=== PATIENT | male | born 1965 | race African-American/Black ===

== ENCOUNTER 2018-11-21 16:03 | Emergency (ER) | payer MEDICARE, MEDICAID ==
[~2018-11-21] VITALS: Ht 180.3 cm; Wt 115.0 kg
[~2018-11-21 16:03] MED LIST: HYDR25TA PO; INSLIS SUBCUT; LISI10TA5 PO; NIFE60TA18 PO; SIMV5TAB53 MT
[2018-11-21] MEDS ORDERED: LIDOCAINE HCL/PF 1% 10 MG/ML 5ML VIAL IJ ONE (17:30)
[2018-11-21] MEDS ORDERED: BACITRACIN ZINC OINT UDPKT TOP ONE (17:30)
[2018-11-21 18:00] VITALS: BP 95/68
== END 2018-11-21 18:10 | disposition home or self-care (01) ==
LOC: ER 16:03
DX: L02.214 Cutaneous abscess of groin (principal); E11.9 Type 2 diabetes mellitus without complications
CPT/HCPCS: 10060; 82962; 99283; J3490

== ENCOUNTER 2018-11-23 15:07 | Emergency (ER) | payer MEDICARE, MEDICAID ==
[~2018-11-23] VITALS: Ht 180.3 cm; Wt 104.5 kg
[2018-11-23] MEDS ORDERED: BACITRACIN ZINC OINT UDPKT TOP ONE (16:45)
[2018-11-23] MEDS ORDERED: LIDOCAINE 1%/EPI 1:100,000 10 ML VIAL IJ ONE (16:45)
[2018-11-23] MEDS ORDERED: LIDOCAINE HCL/EPINEPHRINE 1%-EPI 1:100,000 20 ML VIAL INFIL NR (16:55)
[2018-11-23 17:35] VITALS: BP 139/75
== END 2018-11-23 17:58 | disposition home or self-care (01) ==
LOC: ER 15:31
DX: Z48.00 Encounter for change or removal of nonsurgical wound dressing (principal); L02.214 Cutaneous abscess of groin
CPT/HCPCS: 10060; 99283; J3490

== ENCOUNTER 2018-11-26 14:40 | Emergency (ER) | payer MEDICARE, MEDICAID ==
[~2018-11-26] VITALS: Ht 180.3 cm; Wt 88.0 kg
[~2018-11-26 14:40] MED LIST changes: -SIMV5TAB53 MT; +SIMV5TAB58 MT
[2018-11-26 17:45] VITALS: BP 154/83
== END 2018-11-26 17:46 | disposition home or self-care (01) ==
LOC: ER 14:40
DX: L02.214 Cutaneous abscess of groin (principal); E11.9 Type 2 diabetes mellitus without complications; E78.00 Pure hypercholesterolemia, unspecified; I10 Essential (primary) hypertension; Z79.899 Other long term (current) drug therapy; Z79.4 Long term (current) use of insulin
CPT/HCPCS: 99281

== ENCOUNTER 2019-12-30 20:49 | Emergency (ER) | payer MEDICARE, MEDICAID ==
[~2019-12-30] VITALS: Ht 180.3 cm; Wt 81.6 kg
[2019-12-30 23:13] VITALS: BP 127/74
== END 2019-12-30 23:14 | disposition home or self-care (01) ==
LOC: ER 20:49
DX: R05 Cough (principal); Z20.828 Contact with and (suspected) exposure to other viral communicable diseases; R43.0 Anosmia; E11.9 Type 2 diabetes mellitus without complications; I10 Essential (primary) hypertension; Z79.899 Other long term (current) drug therapy
CPT/HCPCS: 99283; C9803; U0003; 99282

== ENCOUNTER 2020-01-16 20:38 | Inpatient (IN) | payer MEDICARE, MEDICAID ==
[~2020-01-16] VITALS: Ht 180.3 cm; Wt 82.6 kg
[2020-01-16] MEDS ORDERED: SODIUM CHLORIDE 0.9% 1,000 ML IV ONE ×2 (21:44→23:30)
[2020-01-16] MEDS ORDERED: ONDANSETRON HCL 4MG/2ML INJ IV STA (21:44)
[2020-01-16 22:51] LABS: BASOPHILS % 1.1 % (0.0-2.0); EOSINOPHILS % 1.3 % (0.0-5.0); HEMATOCRIT. 35.1 % (42.0-52.0); HEMOGLOBIN. 11.6 g/dL (14.0-18.0); LYMPHOCYTES % 19.7 % (20.0-50.0); MEAN CORPUSCULAR HEMOGLOBIN 28.2 pg (28.0-32.0); MEAN CORPUSCULAR VOLUME 85.2 fL (80.0-94.0); MEAN PLATELET VOLUME 10.6 fl (7.4-10.4); MONOCYTES % 7.1 % (2.0-8.0); NEUTROPHILS % 70.8 % (40.0-76.0); PLATELET 212 x1000/uL (130-400); RED BLOOD CELL COUNT 4.12 mill/uL (4.7-6.1); RED CELL DISTRIBUTION WIDTH 13.4 % (11.6-14.6)
[2020-01-16 22:57] LABS: CHLORIDE 93 mEq/L (98-107)
[2020-01-16 23:04] LABS: BETA HYDROXYBUTYRATE 1.5 mMol/L (0.0-0.3)
[2020-01-16] MEDS ORDERED: INSULIN REGULAR (HUMULIN R) 300UNITS/3ML SUBCUT ONE (23:30)
[2020-01-17] MEDS ORDERED: ONDANSETRON HCL 4MG/2ML INJ IV PRN (00:15)
[2020-01-17] MEDS ORDERED: DOCUSATE SODIUM 100MG CAPSULE PO PRN (00:15)
[2020-01-17] MEDS ORDERED: HYDRALAZINE 20MG/ML VIAL IV PRN (00:15)
[2020-01-17] MEDS ORDERED: HYDROCODONE/ACETAMINOPHEN 10/325MG TABLET PO PRN (00:15)
[2020-01-17] MEDS ORDERED: ACETAMINOPHEN 325MG TABLET PO PRN (00:15)
[2020-01-17] MEDS ORDERED: DIPHENHYDRAMINE 50MG/ML VIAL IV PRN (00:15)
[2020-01-17] MEDS ORDERED: MAGNESIUM/ALUMINUM HYDROXIDE/SIMETHICONE 30ML UDC PO PRN (00:15)
[2020-01-17] MEDS ORDERED: CLONIDINE 0.1MG TABLET PO PRN (00:15)
[2020-01-17] MEDS ORDERED: LORAZEPAM 2MG/ML CPJ IV PRN (00:15)
[2020-01-17] MEDS ORDERED: GUAIFENESIN 200MG/10ML SUGAR FREE UDC PO PRN (00:15)
[2020-01-17] MEDS ORDERED: MORPHINE SULFATE 2 MG/ML CPJ (NOT FOR IM USE) IV PRN (00:15)
[2020-01-17] MEDS ORDERED: DEXTROSE 50% WATER 50ML SYRINGE IV PRN (00:15)
[2020-01-17] MEDS ORDERED: IPRATROPIUM/ALBUTEROL 0.5-3(2.5)MG/3ML NEB NEB PRN (00:15)
[2020-01-17 00:55] LABS: BG CARBOXYHEMOGLOBIN 0.3 % (0.5-1.5); BG DEOXYHEMOGLOBIN 4.6 % (0.0-5.0); BG FRACTION INSPIRED OXYGEN 21; BG HCO3 ACT 16.1 mmol/L (22.0-26.0); BG METHEMOGLOBIN 0.3 % (0.0-1.5); BG OXYGEN SATURATION 95.4 % (92.0-98.5); BG OXYHEMOGLOBIN 94.8 % (94.0-97.0); BG PCO2 31.9 mmHg (35.0-45.0); BG PO2 82.1 mmHg (75.0-100.0); BG SAMPLE SITE RIGHT RADIAL; BG TOTAL HEMOGLOBIN 10.6 g/dL (12.0-18.0); BG VENT MODE ROOM AIR
[2020-01-17] MEDS ORDERED: SODIUM CHLORIDE 0.9% 1,000 ML IV ONE (01:00)
[2020-01-17] MEDS ORDERED: POTASSIUM CHLORIDE 20MEQ TABLET SR PO ONE (02:00)
[2020-01-17] MEDS ORDERED: SODIUM CHLORIDE 0.9% 2,000 ML IV ONE (02:00)
[2020-01-17 02:10] LABS: CLARITY URINE CLEAR (CLEAR); COLOR URINE YELLOW (YELLOW); KETONES URINE NEGATIVE (NEGATIVE); LEUKOCYTE ESTERASE URINE NEGATIVE (NEGATIVE); NITRITE URINE NEGATIVE (NEGATIVE); OCCULT BLOOD URINE 1+ (NEGATIVE); PH URINE 5.5 (4.5-8.0); PROTEIN URINE 3+ (NEGATIVE); SPECIFIC GRAVITY URINE 1.023 (1.005-1.030); UROBILINOGEN URINE 0.2 E.U./dL (0.2-1.0)
[2020-01-17] MEDS: SODIUM CHLORIDE 0.45% 1,000 ML IV SCH ×3 (02:24→21:42)
[2020-01-17] MEDS: SODIUM CHLORIDE 0.9% INJ 3ML FLUSH IVF SCH ×3 (06:03→21:42)
[2020-01-17] MEDS: BLOOD SUGAR DIAGNOSTIC STRIP TEST SCH ×5 (06:46→20:36)
[2020-01-17] MEDS: INSULIN LISPRO 100 UNITS/ML SUBCUT SCH ×5 (07:50→20:40)
[2020-01-17] MEDS ORDERED: INSULIN LISPRO(HUMALOG)300 UNIT/3ML VIAL SUBCUT PRN (09:45)
[2020-01-17] MEDS ORDERED: INSULIN GLARGINE UD 100 UNITS/ML SYR SUBCUT SCH ×2 (10:00)
[2020-01-17] MEDS ORDERED: INSU100C6 SQ (12:30)
[2020-01-17 12:51] VITALS: BP 154/92
[2020-01-17] MEDS ORDERED: HYDRALAZINE 10 MG in SODIUM CHLORIDE 0.9% 49.5 ML IV PRN (15:45)
[2020-01-17 16:00] VITALS: BP 142/93
[2020-01-17 20:00] VITALS: BP 124/89
[2020-01-17] MEDS: INSULIN GLARGINE UD 100 UNITS/ML SYR SUBCUT SCH (21:42)
[2020-01-18] VITALS: BP 135/93
[2020-01-18 04:00] VITALS: BP 125/76
[2020-01-18] MEDS: BLOOD SUGAR DIAGNOSTIC STRIP TEST SCH ×4 (06:31→21:05)
[2020-01-18 06:47] LABS: BASOPHILS % 0.6 % (0.0-2.0); EOSINOPHILS % 2.2 % (0.0-5.0); HEMATOCRIT. 28.1 % (42.0-52.0); HEMOGLOBIN. 9.8 g/dL (14.0-18.0); LYMPHOCYTES % 33.6 % (20.0-50.0); MEAN CORPUSCULAR HEMOGLOBIN 28.8 pg (28.0-32.0); MEAN CORPUSCULAR VOLUME 82.4 fL (80.0-94.0); MEAN PLATELET VOLUME 9.9 fl (7.4-10.4); MONOCYTES % 5.8 % (2.0-8.0); NEUTROPHILS % 57.8 % (40.0-76.0); PLATELET 162 x1000/uL (130-400); RED BLOOD CELL COUNT 3.42 mill/uL (4.7-6.1); RED CELL DISTRIBUTION WIDTH 13.2 % (11.6-14.6)
[2020-01-18 06:49] LABS: CHLORIDE 109 mEq/L (98-107)
[2020-01-18 07:07] LABS: PHOSPHORUS 3.3 mg/dL (2.5-4.9)
[2020-01-18 07:10] LABS: HEPATITIS B SURFACE ANTIGEN NEGATIVE
[2020-01-18] MEDS: INSULIN LISPRO 100 UNITS/ML SUBCUT SCH ×4 (07:50→21:06)
[2020-01-18 08:00] VITALS: BP 136/77
[2020-01-18] MEDS: ENOXAPARIN 30MG/0.3ML SYR SUBCUT SCH ×2 (08:28→08:34)
[2020-01-18] MEDS: SODIUM CHLORIDE 0.45% 1,000 ML IV SCH ×2 (08:29→17:30)
[2020-01-18] MEDS: INSULIN GLARGINE UD 100 UNITS/ML SYR SUBCUT SCH ×2 (10:00→21:06)
[2020-01-18 12:00] VITALS: BP 162/96
[2020-01-18] MEDS: SODIUM CHLORIDE 0.9% INJ 3ML FLUSH IVF SCH (14:37)
[2020-01-18 16:00] VITALS: BP 120/77
[2020-01-18 20:00] VITALS: BP 122/78
[2020-01-19] VITALS: BP 118/80
[2020-01-19 04:01] VITALS: BP 123/77
[2020-01-19 06:48] LABS: BASOPHILS % 0.5 % (0.0-2.0); HEMATOCRIT. 27.3 % (42.0-52.0); HEMOGLOBIN. 9.4 g/dL (14.0-18.0); LYMPHOCYTES % 38.6 % (20.0-50.0); MEAN CORPUSCULAR HEMOGLOBIN 28.5 pg (28.0-32.0); MEAN CORPUSCULAR VOLUME 83.2 fL (80.0-94.0); MEAN PLATELET VOLUME 9.5 fl (7.4-10.4); MONOCYTES % 7.4 % (2.0-8.0); NEUTROPHILS % 51.5 % (40.0-76.0); PLATELET 163 x1000/uL (130-400); RED BLOOD CELL COUNT 3.29 mill/uL (4.7-6.1); RED CELL DISTRIBUTION WIDTH 13.7 % (11.6-14.6)
[2020-01-19] MEDS: BLOOD SUGAR DIAGNOSTIC STRIP TEST SCH ×2 (07:34→11:56)
[2020-01-19] MEDS: INSULIN LISPRO 100 UNITS/ML SUBCUT SCH ×2 (07:50→12:12)
[2020-01-19 08:00] VITALS: BP 111/72
[2020-01-19] MEDS: ENOXAPARIN 30MG/0.3ML SYR SUBCUT SCH (09:06)
[2020-01-19] MEDS: INSULIN GLARGINE UD 100 UNITS/ML SYR SUBCUT SCH (10:56)
[2020-01-19 12:00] VITALS: BP 119/86
[2020-01-19 13:47] VITALS: BP 119/86
[2020-01-19 16:00] VITALS: BP 135/84
== END 2020-01-19 16:44 | disposition home or self-care (01) | DRG 638 ==
LOC: ER 20:38 → MICUSO 23:46 → 6EST 01-17 07:20
PROVIDERS: ADMIT Internal Medicine; ATTEND Internal Medicine
DX: E11.65 Type 2 diabetes mellitus with hyperglycemia (principal); N17.9 Acute kidney failure, unspecified; E46 Unspecified protein-calorie malnutrition; E87.2 Acidosis; E86.0 Dehydration; T38.3X6A Underdosing of insulin and oral hypoglycemic [antidiabetic] drugs, initial encounter; D64.9 Anemia, unspecified; E11.22 Type 2 diabetes mellitus with diabetic chronic kidney disease; E11.610 Type 2 diabetes mellitus with diabetic neuropathic arthropathy; N18.3 Chronic kidney disease, stage 3 (moderate); E78.5 Hyperlipidemia, unspecified; E87.5 Hyperkalemia; I12.9 Hypertensive chronic kidney disease with stage 1 through stage 4 chronic kidney disease, or unspecified chronic kidney disease; Z68.25 Body mass index [BMI] 25.0-25.9, adult; Z79.899 Other long term (current) drug therapy; Z84.1 Family history of disorders of kidney and ureter; Y92.89 Other specified places as the place of occurrence of the external cause
CPT/HCPCS: 36415; 36600; 71045; 76770; 80048; 80053; 81003; 82010; 82375; 82570; 82805; 82962; 83036; 84100; 84156; 85025; 86803; 87340; 93005; 96372; 99291; J1650; J1815; J2060; J2405; J7030

== ENCOUNTER 2020-06-02 22:33 | Inpatient (IN) | payer MEDICARE, MEDICAID ==
[~2020-06-02] VITALS: Ht 180.3 cm; Wt 91.9 kg
[~2020-06-02 22:33] MED LIST changes: +INSU100C6 SQ
[2020-06-02] MEDS ORDERED: ASPIRIN 81MG TABLET PO ONE (23:30)
[2020-06-02] MEDS ORDERED: NITROGLYCERIN 0.4MG TABLET SL SL PRN (23:30)
[2020-06-03] VITALS (24 sets, daily range): BP systolic 111–167; BP diastolic 59–90
[2020-06-03 00:19] LABS: BASOPHILS % 1.1 % (0.0-2.0); EOSINOPHILS % 2.1 % (0.0-5.0); HEMOGLOBIN. 7.8 g/dL (14.0-18.0); LYMPHOCYTES % 18.6 % (20.0-50.0); MEAN CORPUSCULAR HEMOGLOBIN 28.9 pg (28.0-32.0); MEAN CORPUSCULAR VOLUME 85.1 fL (80.0-94.0); MEAN PLATELET VOLUME 9.4 fl (7.4-10.4); MONOCYTES % 7.1 % (2.0-8.0); NEUTROPHILS % 71.1 % (40.0-76.0); PLATELET 156 x1000/uL (130-400); RED BLOOD CELL COUNT 2.71 mill/uL (4.7-6.1)
[2020-06-03 00:27] LABS: CHLORIDE 100 mEq/L (98-107)
[2020-06-03 00:32] LABS: ETHANOL BLOOD < 10 mg/dL
[2020-06-03] MEDS ORDERED: FUROSEMIDE 100MG/10ML VIAL IV NR (03:46)
[2020-06-03] MEDS ORDERED: INSULIN REGULAR (HUMULIN R) 300UNITS/3ML VIAL IV NR (04:00)
[2020-06-03] MEDS ORDERED: DEXTROSE 50% WATER 50ML SYRINGE IV ONE (04:00)
[2020-06-03] MEDS ORDERED: SODIUM BICARBONATE 8.4% 1 MEQ/ML 50ML SYR IV NR (04:00)
[2020-06-03] MEDS ORDERED: CALCIUM CHLORIDE 1GM/10ML SYR IV NR (04:00)
[2020-06-03] MEDS ORDERED: DOCUSATE SODIUM 100MG CAPSULE PO PRN (06:45)
[2020-06-03] MEDS ORDERED: NITROGLYCERIN 0.4MG TABLET SL SL PRN (06:45)
[2020-06-03] MEDS ORDERED: DEXTROSE 50% WATER 50ML SYRINGE IV PRN (06:45)
[2020-06-03] MEDS ORDERED: IPRATROPIUM/ALBUTEROL 0.5-3(2.5)MG/3ML NEB NEB PRN (06:45)
[2020-06-03] MEDS ORDERED: ACETAMINOPHEN 325MG TABLET PO PRN ×2 (06:45)
[2020-06-03] MEDS ORDERED: TRAMADOL 50MG TABLET PO PRN (06:45)
[2020-06-03] MEDS ORDERED: ONDANSETRON HCL 4MG/2ML INJ IV PRN (06:45)
[2020-06-03] MEDS ORDERED: MAGNESIUM/ALUMINUM HYDROXIDE/SIMETHICONE 30ML UDC PO PRN (06:45)
[2020-06-03] MEDS ORDERED: GUAIFENESIN 200MG/10ML SUGAR FREE UDC PO PRN (06:45)
[2020-06-03] MEDS ORDERED: ZOLPIDEM TARTRATE 5MG TABLET PO PRN (06:45)
[2020-06-03 07:37] LABS: BG BASE EXCESS -13.2 mmol/L (-2.0-2.0); BG CARBOXYHEMOGLOBIN 0.2 % (0.5-1.5); BG DEOXYHEMOGLOBIN 3.3 % (0.0-5.0); BG FRACTION INSPIRED OXYGEN 21; BG HCO3 ACT 11.8 mmol/L (22.0-26.0); BG METHEMOGLOBIN 0.6 % (0.0-1.5); BG OXYGEN SATURATION 96.7 % (92.0-98.5); BG OXYHEMOGLOBIN 95.9 % (94.0-97.0); BG PCO2 24.2 mmHg (35.0-45.0); BG PH 7.306 (7.350-7.450); BG SAMPLE SITE RIGHT RADIAL; BG TOTAL HEMOGLOBIN 7.2 g/dL (12.0-18.0); BG VENT MODE ROOM AIR
[2020-06-03] MEDS: INSULIN LISPRO 100 UNITS/ML SUBCUT SCH ×7 (07:50→21:00)
[2020-06-03] MEDS: FUROSEMIDE 40MG/4ML VIAL IVP SCH ×2 (09:00→21:57)
[2020-06-03] MEDS: ENOXAPARIN 40MG/0.4ML SYR SUBCUT SCH (09:00)
[2020-06-03] MEDS: BLOOD SUGAR DIAGNOSTIC STRIP TEST SCH ×4 (09:00→21:00)
[2020-06-03] MEDS: METOPROLOL TARTRATE 25MG TABLET PO SCH ×2 (09:00→22:07)
[2020-06-03 09:26] LABS: *AMPHETAMINES SCREEN URINE NEGATIVE (NEGATIVE); *BARBITURATES SCREEN URINE NEGATIVE (NEGATIVE); *BENZODIAZEPINES SCREEN URINE NEGATIVE (NEGATIVE); *COCAINE SCREEN URINE NEGATIVE (NEGATIVE); METHADONE URINE SCREEN NEGATIVE (NEGATIVE)
[2020-06-03 09:27] LABS: CANNABINOID URINE SCREEN NEGATIVE (NEGATIVE); OPIATES URINE SCREEN NEGATIVE (NEGATIVE); PHENCYCLIDINE URINE SCREEN NEGATIVE (NEGATIVE)
[2020-06-03] MEDS ORDERED: INSULIN GLARGINE UD 100 UNITS/ML SYR SUBCUT SCH (10:00)
[2020-06-03] MEDS ORDERED: SODIUM POLYSTYRENE SULFONATE 15 G/60 ML BOT PO SCH (10:00)
[2020-06-03] MEDS ORDERED: METOLAZONE 10MG TABLET PO SCH (10:00)
[2020-06-03 10:23] LABS: BASOPHILS % 1.2 % (0.0-2.0); EOSINOPHILS % 3.1 % (0.0-5.0); MEAN CORPUSCULAR HEMOGLOBIN 28.3 pg (28.0-32.0); MEAN CORPUSCULAR VOLUME 83.1 fL (80.0-94.0); MEAN PLATELET VOLUME 8.3 fl (7.4-10.4); MONOCYTES % 8.3 % (2.0-8.0); NEUTROPHILS % 70.4 % (40.0-76.0); PLATELET 127 x1000/uL (130-400); RED BLOOD CELL COUNT 2.45 mill/uL (4.7-6.1); RED CELL DISTRIBUTION WIDTH 15.5 % (11.6-14.6)
[2020-06-03 10:26] LABS: HEMATOCRIT. 20.3 % (42.0-52.0); HEMOGLOBIN. 6.9 g/dL (14.0-18.0)
[2020-06-03 10:30] LABS: CHLORIDE 106 mEq/L (98-107)
[2020-06-03 10:36] LABS: TOTAL IRON BINDING CAPACITY 248 ug/dL (250-450)
[2020-06-03 10:38] LABS: BETA HYDROXYBUTYRATE 1.1 mMol/L (0.0-0.3); HDL CHOLESTEROL 74 mg/dL (40-59); LDL CHOLESTEROL 58 mg/dL (5-100)
[2020-06-03 10:55] LABS: FOLIC ACID (FOLATE) SERUM 9.5 ng/mL (>5.38)
[2020-06-03 11:01] LABS: INR 1.1; PARTIAL THROMBOPLASTIN TIME 28.7 sec (23.4-31.0); PROTHROMBIN TIME 11.2 sec (9.6-11.0)
[2020-06-03] MEDS: ASCORBIC ACID 500 MG TABLET PO SCH ×2 (11:12→22:06)
[2020-06-03] MEDS: FAMOTIDINE 20MG TABLET PO SCH (11:12)
[2020-06-03] MEDS: GUAIFENESIN/DM 600MG/30MG ER TAB 12HR PO SCH ×2 (11:12→22:07)
[2020-06-03] MEDS ORDERED: EPOETIN ALFA 10000UNITS/ML VIAL SUBCUT NR (11:30)
[2020-06-03] MEDS: SEVELAMER CARBONATE 800 MG TABLET PO SCH ×3 (13:00→18:00)
[2020-06-03 13:05] LABS: HEPATITIS B SURFACE AB < 3.1 mIU/mL
[2020-06-03 13:17] LABS: HEPATITIS B SURFACE ANTIGEN NEGATIVE
[2020-06-03] MEDS ORDERED: EPOETIN ALFA-EPBX 10,000 UNIT/ML VIAL SUBCUT NR (13:30)
[2020-06-03 13:44] LABS: HEPATITIS A AB IGM NEGATIVE (NEGATIVE)
[2020-06-03] MEDS: ZINC SULFATE 220 MG ( 50 ) CAPSULE PO SCH (15:44)
[2020-06-03] MEDS: ASPIRIN 81MG EC TABLET PO SCH (15:44)
[2020-06-03] MEDS: SODIUM BICARBONATE 100 MEQ in SODIUM CHLORIDE 0.45% 1,000 ML IV SCH (16:13)
[2020-06-03 17:52] LABS: CREATINE KINASE MB FRACTION 11.2 ng/mL (0.5-3.6)
[2020-06-03 19:35] LABS: CLARITY URINE CLEAR (CLEAR); COLOR URINE YELLOW (YELLOW); KETONES URINE NEGATIVE (NEGATIVE); LEUKOCYTE ESTERASE URINE NEGATIVE (NEGATIVE); NITRITE URINE NEGATIVE (NEGATIVE); OCCULT BLOOD URINE 1+ (NEGATIVE); PROTEIN URINE 3+ (NEGATIVE); SPECIFIC GRAVITY URINE 1.014 (1.005-1.030); UROBILINOGEN URINE 0.2 E.U./dL (0.2-1.0)
[2020-06-04] VITALS (11 sets, daily range): BP systolic 133–226; BP diastolic 65–109
[2020-06-04 00:06] LABS: CREATINE KINASE MB FRACTION 7.8 ng/mL (0.5-3.6)
[2020-06-04] MEDS: CLONIDINE 0.1MG TABLET PO PRN (01:33)
[2020-06-04] MEDS ORDERED: CLONIDINE 0.1MG TABLET PO ONE (03:30)
[2020-06-04] MEDS: SODIUM BICARBONATE 100 MEQ in SODIUM CHLORIDE 0.45% 1,000 ML IV SCH ×2 (04:05→08:39)
[2020-06-04] MEDS ORDERED: CLONIDINE 0.1MG TABLET PO SCH (06:45)
[2020-06-04] MEDS: BLOOD SUGAR DIAGNOSTIC STRIP TEST SCH ×4 (07:30→21:00)
[2020-06-04 07:40] LABS: BASOPHILS % 0.5 % (0.0-2.0); EOSINOPHILS % 0.9 % (0.0-5.0); HEMATOCRIT. 22.8 % (42.0-52.0); LYMPHOCYTES % 11.9 % (20.0-50.0); MEAN CORPUSCULAR HEMOGLOBIN 29.3 pg (28.0-32.0); MEAN CORPUSCULAR VOLUME 83.5 fL (80.0-94.0); MEAN PLATELET VOLUME 9.3 fl (7.4-10.4); MONOCYTES % 9.9 % (2.0-8.0); NEUTROPHILS % 76.8 % (40.0-76.0); PLATELET 132 x1000/uL (130-400); RED BLOOD CELL COUNT 2.73 mill/uL (4.7-6.1)
[2020-06-04 08:33] LABS: CHLORIDE 101 mEq/L (98-107)
[2020-06-04] MEDS: FAMOTIDINE 20MG TABLET PO SCH (08:40)
[2020-06-04] MEDS: ASPIRIN 81MG EC TABLET PO SCH (08:40)
[2020-06-04] MEDS: GUAIFENESIN/DM 600MG/30MG ER TAB 12HR PO SCH ×2 (08:40→22:15)
[2020-06-04] MEDS: ASCORBIC ACID 500 MG TABLET PO SCH ×2 (08:40→22:15)
[2020-06-04] MEDS: FUROSEMIDE 40MG/4ML VIAL IVP SCH ×2 (08:41→22:28)
[2020-06-04] MEDS: SEVELAMER CARBONATE 800 MG TABLET PO SCH ×3 (08:41→18:36)
[2020-06-04] MEDS: METOPROLOL TARTRATE 25MG TABLET PO SCH ×2 (08:41→22:17)
[2020-06-04] MEDS: ZINC SULFATE 220 MG ( 50 ) CAPSULE PO SCH (08:41)
[2020-06-04] MEDS: ENOXAPARIN 40MG/0.4ML SYR SUBCUT SCH (08:42)
[2020-06-04 08:44] LABS: PHOSPHORUS 5.8 mg/dL (2.5-4.9)
[2020-06-04] MEDS: INSULIN LISPRO 100 UNITS/ML SUBCUT SCH ×8 (08:44→21:00)
[2020-06-04] MEDS: NIFEDIPINE XL 90MG TAB PO SCH (10:45)
[2020-06-04] MEDS: ACYCLOVIR 200MG CAPSULE PO SCH ×2 (13:20→22:18)
[2020-06-04] MEDS: INSULIN GLARGINE UD 100 UNITS/ML SYR SUBCUT SCH (13:21)
[2020-06-04] MEDS ORDERED: EPOETIN ALFA-EPBX 10,000 UNIT/ML VIAL SUBCUT NR (14:45)
[2020-06-05] VITALS (11 sets, daily range): BP systolic 108–162; BP diastolic 45–92
[2020-06-05] MEDS: BLOOD SUGAR DIAGNOSTIC STRIP TEST SCH ×4 (07:30→21:00)
[2020-06-05] MEDS: INSULIN LISPRO 100 UNITS/ML SUBCUT SCH ×6 (08:00→23:27)
[2020-06-05] MEDS: SEVELAMER CARBONATE 800 MG TABLET PO SCH ×3 (08:45→18:39)
[2020-06-05] MEDS: ACYCLOVIR 200MG CAPSULE PO SCH ×2 (09:00→23:17)
[2020-06-05] MEDS: GUAIFENESIN/DM 600MG/30MG ER TAB 12HR PO SCH ×2 (09:00→23:17)
[2020-06-05] MEDS: METOPROLOL TARTRATE 25MG TABLET PO SCH ×2 (09:00→23:18)
[2020-06-05] MEDS: ZINC SULFATE 220 MG ( 50 ) CAPSULE PO SCH (09:00)
[2020-06-05] MEDS: NIFEDIPINE XL 90MG TAB PO SCH (09:00)
[2020-06-05] MEDS: ASCORBIC ACID 500 MG TABLET PO SCH ×2 (09:00→23:17)
[2020-06-05] MEDS: FAMOTIDINE 20MG TABLET PO SCH (09:00)
[2020-06-05] MEDS ORDERED: ENOXAPARIN 30MG/0.3ML SYR SUBCUT SCH (09:00)
[2020-06-05] MEDS: ASPIRIN 81MG EC TABLET PO SCH (09:00)
[2020-06-05] MEDS: INSULIN GLARGINE UD 100 UNITS/ML SYR SUBCUT SCH (10:00)
[2020-06-05] MEDS: TIMOLOL MALEATE 0.5% OPHTH DROPS 5ML EACHEYE SCH ×2 (13:17→23:18)
[2020-06-05] MEDS: BRIMONIDINE 0.2% OPHTH DROPS 5ML EACHEYE SCH ×2 (14:14→23:19)
[2020-06-05 17:11] LABS: BASOPHILS % 0.5 % (0.0-2.0); EOSINOPHILS % 2.1 % (0.0-5.0); HEMATOCRIT. 22.6 % (42.0-52.0); HEMOGLOBIN. 7.7 g/dL (14.0-18.0); LYMPHOCYTES % 21.9 % (20.0-50.0); MEAN CORPUSCULAR HEMOGLOBIN 28.5 pg (28.0-32.0); MEAN CORPUSCULAR VOLUME 83.9 fL (80.0-94.0); MEAN PLATELET VOLUME 9.3 fl (7.4-10.4); MONOCYTES % 11.6 % (2.0-8.0); NEUTROPHILS % 63.9 % (40.0-76.0); PLATELET 119 x1000/uL (130-400); RED BLOOD CELL COUNT 2.69 mill/uL (4.7-6.1); RED CELL DISTRIBUTION WIDTH 15.3 % (11.6-14.6)
[2020-06-06] VITALS: BP 171/89
[2020-06-06] MEDS: BRIMONIDINE 0.2% OPHTH DROPS 5ML EACHEYE SCH ×3 (06:19→21:18)
[2020-06-06 06:50] LABS: BASOPHILS % 0.7 % (0.0-2.0); EOSINOPHILS % 1.8 % (0.0-5.0); HEMATOCRIT. 24.6 % (42.0-52.0); HEMOGLOBIN. 8.5 g/dL (14.0-18.0); LYMPHOCYTES % 17.3 % (20.0-50.0); MEAN CORPUSCULAR HEMOGLOBIN 29.2 pg (28.0-32.0); MEAN CORPUSCULAR VOLUME 84.6 fL (80.0-94.0); MEAN PLATELET VOLUME 8.5 fl (7.4-10.4); NEUTROPHILS % 69.2 % (40.0-76.0); PLATELET 122 x1000/uL (130-400); RED BLOOD CELL COUNT 2.91 mill/uL (4.7-6.1); RED CELL DISTRIBUTION WIDTH 15.3 % (11.6-14.6)
[2020-06-06] MEDS: BLOOD SUGAR DIAGNOSTIC STRIP TEST SCH ×4 (07:30→21:27)
[2020-06-06] MEDS: INSULIN LISPRO 100 UNITS/ML SUBCUT SCH ×7 (07:30→21:00)
[2020-06-06 08:00] VITALS: BP 169/89
[2020-06-06] MEDS ORDERED: POTASSIUM CHLORIDE 20MEQ TABLET SR PO SCH (08:00)
[2020-06-06] MEDS: ZINC SULFATE 220 MG ( 50 ) CAPSULE PO SCH (08:51)
[2020-06-06] MEDS: GUAIFENESIN/DM 600MG/30MG ER TAB 12HR PO SCH ×2 (08:52→21:15)
[2020-06-06] MEDS: SEVELAMER CARBONATE 800 MG TABLET PO SCH ×3 (08:52→17:54)
[2020-06-06] MEDS: NIFEDIPINE XL 90MG TAB PO SCH (08:54)
[2020-06-06] MEDS: ASCORBIC ACID 500 MG TABLET PO SCH ×2 (08:54→21:15)
[2020-06-06] MEDS: ASPIRIN 81MG EC TABLET PO SCH (08:54)
[2020-06-06] MEDS: TIMOLOL MALEATE 0.5% OPHTH DROPS 5ML EACHEYE SCH ×2 (08:54→21:27)
[2020-06-06] MEDS: FAMOTIDINE 20MG TABLET PO SCH (08:54)
[2020-06-06] MEDS: ACYCLOVIR 200MG CAPSULE PO SCH ×2 (08:54→21:15)
[2020-06-06] MEDS: METOPROLOL TARTRATE 25MG TABLET PO SCH ×2 (08:54→21:16)
[2020-06-06 10:00] VITALS: BP 162/91
[2020-06-06] MEDS: INSULIN GLARGINE UD 100 UNITS/ML SYR SUBCUT SCH (10:34)
[2020-06-06 12:00] VITALS: BP 157/93
[2020-06-06] MEDS: CLONIDINE 0.1MG TABLET PO PRN (13:29)
[2020-06-06 14:00] VITALS: BP 142/86
[2020-06-06 16:00] VITALS: BP 108/68
[2020-06-07] VITALS (20 sets, daily range): BP systolic 130–168; BP diastolic 56–101
[2020-06-07 06:50] LABS: PARTIAL THROMBOPLASTIN TIME 27.9 sec (23.4-31.0); PROTHROMBIN TIME 10.9 sec (9.6-11.0)
[2020-06-07 06:54] LABS: BASOPHILS % 0.9 % (0.0-2.0); EOSINOPHILS % 1.9 % (0.0-5.0); HEMOGLOBIN. 9.1 g/dL (14.0-18.0); LYMPHOCYTES % 22.9 % (20.0-50.0); MEAN CORPUSCULAR HEMOGLOBIN 29.9 pg (28.0-32.0); MEAN CORPUSCULAR VOLUME 85.8 fL (80.0-94.0); MEAN PLATELET VOLUME 9.2 fl (7.4-10.4); MONOCYTES % 11.2 % (2.0-8.0); NEUTROPHILS % 63.1 % (40.0-76.0); PLATELET 143 x1000/uL (130-400); RED BLOOD CELL COUNT 3.03 mill/uL (4.7-6.1); RED CELL DISTRIBUTION WIDTH 15.6 % (11.6-14.6)
[2020-06-07] MEDS: BLOOD SUGAR DIAGNOSTIC STRIP TEST SCH ×4 (07:30→21:52)
[2020-06-07] MEDS: INSULIN LISPRO 100 UNITS/ML SUBCUT SCH ×7 (07:30→21:55)
[2020-06-07 08:30] LABS: PHOSPHORUS 5.1 mg/dL (2.5-4.9)
[2020-06-07] MEDS ORDERED: SODIUM BICARBONATE 4% (2.4MEQ) 5ML VIAL IV ONE (09:30)
[2020-06-07] MEDS ORDERED: CEFAZOLIN 1000MG PREMIX 50 ML IV SCH (09:30)
[2020-06-07] MEDS ORDERED: HEPARIN 1000 UNITS/ML 10ML ONE (09:30)
[2020-06-07] MEDS ORDERED: LIDOCAINE HCL 1% 20ML VIAL (Pyxis) INJ ONE (09:30)
[2020-06-07] MEDS: INSULIN GLARGINE UD 100 UNITS/ML SYR SUBCUT SCH (10:00)
[2020-06-07] MEDS: ASCORBIC ACID 500 MG TABLET PO SCH ×2 (10:01→21:41)
[2020-06-07] MEDS: ZINC SULFATE 220 MG ( 50 ) CAPSULE PO SCH (10:01)
[2020-06-07] MEDS: FAMOTIDINE 20MG TABLET PO SCH (10:01)
[2020-06-07] MEDS: NIFEDIPINE XL 90MG TAB PO SCH (10:02)
[2020-06-07] MEDS: GUAIFENESIN/DM 600MG/30MG ER TAB 12HR PO SCH ×2 (10:02→21:41)
[2020-06-07] MEDS: METOPROLOL TARTRATE 25MG TABLET PO SCH ×2 (10:02→21:43)
[2020-06-07] MEDS: ACYCLOVIR 200MG CAPSULE PO SCH ×2 (10:02→21:41)
[2020-06-07] MEDS: ASPIRIN 81MG EC TABLET PO SCH (10:02)
[2020-06-07] MEDS: SEVELAMER CARBONATE 800 MG TABLET PO SCH ×2 (10:07→18:28)
[2020-06-07] MEDS: DEXT 10% WATER 1,000 ML IV SCH (10:28)
[2020-06-07] MEDS: TIMOLOL MALEATE 0.5% OPHTH DROPS 5ML EACHEYE SCH ×2 (11:32→21:41)
[2020-06-07] MEDS: BRIMONIDINE 0.2% OPHTH DROPS 5ML EACHEYE SCH ×3 (11:32→21:41)
[2020-06-07] MEDS ORDERED: CEFAZOLIN 1000MG PREMIX 50 ML IV ONE (11:57)
[2020-06-07] MEDS ORDERED: FENTANYL CITRATE/PF 50MCG/ML 2ML VIAL ONE (13:45)
[2020-06-07] MEDS ORDERED: FENTANYL CITRATE/PF 50MCG/ML 2ML VIAL IV ONE (14:15)
[2020-06-07] MEDS ORDERED: LORAZEPAM 0.5MG TABLET PO NR (14:45)
[2020-06-08] VITALS: BP 134/71
[2020-06-08 04:00] VITALS: BP 158/94
[2020-06-08] MEDS: BRIMONIDINE 0.2% OPHTH DROPS 5ML EACHEYE SCH ×3 (06:13→23:30)
[2020-06-08] MEDS: DEXT 10% WATER 1,000 ML IV SCH (06:41)
[2020-06-08] MEDS: BLOOD SUGAR DIAGNOSTIC STRIP TEST SCH ×4 (07:53→21:00)
[2020-06-08] MEDS: SEVELAMER CARBONATE 800 MG TABLET PO SCH ×3 (08:35→17:56)
[2020-06-08] MEDS: INSULIN LISPRO 100 UNITS/ML SUBCUT SCH ×7 (08:36→21:00)
[2020-06-08] MEDS: ASCORBIC ACID 500 MG TABLET PO SCH ×2 (10:18→23:33)
[2020-06-08] MEDS: ZINC SULFATE 220 MG ( 50 ) CAPSULE PO SCH (10:18)
[2020-06-08] MEDS: ACYCLOVIR 200MG CAPSULE PO SCH ×2 (10:18→23:31)
[2020-06-08] MEDS: FAMOTIDINE 20MG TABLET PO SCH (10:18)
[2020-06-08] MEDS: GUAIFENESIN/DM 600MG/30MG ER TAB 12HR PO SCH ×2 (10:18→23:30)
[2020-06-08] MEDS: METOPROLOL TARTRATE 25MG TABLET PO SCH ×2 (10:19→23:33)
[2020-06-08] MEDS: ASPIRIN 81MG EC TABLET PO SCH (10:19)
[2020-06-08] MEDS: NIFEDIPINE XL 90MG TAB PO SCH (10:20)
[2020-06-08] MEDS: TIMOLOL MALEATE 0.5% OPHTH DROPS 5ML EACHEYE SCH ×2 (11:00→21:00)
[2020-06-08] MEDS: INSULIN GLARGINE UD 100 UNITS/ML SYR SUBCUT SCH (11:00)
[2020-06-08 12:00] VITALS: BP 124/78
[2020-06-08 16:00] VITALS: BP 120/80
[2020-06-08 20:00] VITALS: BP 123/63
[2020-06-08 22:00] VITALS: BP 135/61
[2020-06-09] VITALS: BP 125/82
[2020-06-09 02:00] VITALS: BP 136/78
[2020-06-09 04:00] VITALS: BP 134/64
[2020-06-09] MEDS: DEXT 10% WATER 1,000 ML IV SCH (04:25)
[2020-06-09] MEDS: BRIMONIDINE 0.2% OPHTH DROPS 5ML EACHEYE SCH ×2 (06:30→14:25)
[2020-06-09 07:27] LABS: BASOPHILS % 0.6 % (0.0-2.0); HEMOGLOBIN. 8.5 g/dL (14.0-18.0); LYMPHOCYTES % 14.6 % (20.0-50.0); MEAN CORPUSCULAR HEMOGLOBIN 29.6 pg (28.0-32.0); MEAN CORPUSCULAR VOLUME 86.8 fL (80.0-94.0); MONOCYTES % 11.1 % (2.0-8.0); NEUTROPHILS % 71.7 % (40.0-76.0); PLATELET 167 x1000/uL (130-400); RED BLOOD CELL COUNT 2.88 mill/uL (4.7-6.1); RED CELL DISTRIBUTION WIDTH 15.4 % (11.6-14.6)
[2020-06-09] MEDS: INSULIN LISPRO 100 UNITS/ML SUBCUT SCH ×4 (07:30→14:24)
[2020-06-09] MEDS: BLOOD SUGAR DIAGNOSTIC STRIP TEST SCH ×2 (07:30→12:30)
[2020-06-09] MEDS: TIMOLOL MALEATE 0.5% OPHTH DROPS 5ML EACHEYE SCH (10:15)
[2020-06-09] MEDS: GUAIFENESIN/DM 600MG/30MG ER TAB 12HR PO SCH (10:15)
[2020-06-09] MEDS: ASPIRIN 81MG EC TABLET PO SCH (10:16)
[2020-06-09] MEDS: ZINC SULFATE 220 MG ( 50 ) CAPSULE PO SCH (10:16)
[2020-06-09] MEDS: SEVELAMER CARBONATE 800 MG TABLET PO SCH ×2 (10:16→14:20)
[2020-06-09] MEDS: FAMOTIDINE 20MG TABLET PO SCH (10:16)
[2020-06-09] MEDS: ASCORBIC ACID 500 MG TABLET PO SCH (10:16)
[2020-06-09] MEDS: METOPROLOL TARTRATE 25MG TABLET PO SCH (10:17)
[2020-06-09] MEDS: NIFEDIPINE XL 90MG TAB PO SCH (10:17)
[2020-06-09] MEDS: ACYCLOVIR 200MG CAPSULE PO SCH (10:21)
[2020-06-09] MEDS: INSULIN GLARGINE UD 100 UNITS/ML SYR SUBCUT SCH (10:23)
[2020-06-09 18:14] VITALS: BP 129/67
[2020-06-09 18:27] VITALS: BP 143/77
== END 2020-06-09 18:50 | disposition home or self-care (01) | DRG 291 ==
LOC: ER 22:33 → 5EST 06-03 04:55 → EDBEDREQ 06-03 04:58 → SUPCPDRO 06-03 06:34 → ENRESERV 06-03 07:50 → 5EST 06-03 16:30
PROVIDERS: ADMIT Internal Medicine; ATTEND Internal Medicine
PROC: 30233N1 Transfusion of Nonautologous Red Blood Cells into Peripheral Vein, Percutaneous Approach (ICD-10-PCS; principal; 2020-06-03)
PROC: B5181ZA Fluoroscopy of Superior Vena Cava using Low Osmolar Contrast, Guidance (ICD-10-PCS; 2020-06-03)
PROC: 02HV33Z Insertion of Infusion Device into Superior Vena Cava, Percutaneous Approach (ICD-10-PCS; 2020-06-03)
PROC: B548ZZA Ultrasonography of Superior Vena Cava, Guidance (ICD-10-PCS; 2020-06-03)
PROC: 5A1D70Z Performance of Urinary Filtration, Intermittent, Less than 6 Hours Per Day (ICD-10-PCS; 2020-06-03)
PROC: 5A1D70Z Performance of Urinary Filtration, Intermittent, Less than 6 Hours Per Day (ICD-10-PCS; 2020-06-05)
PROC: B5181ZA Fluoroscopy of Superior Vena Cava using Low Osmolar Contrast, Guidance (ICD-10-PCS; 2020-06-07)
PROC: 02PYX3Z Removal of Infusion Device from Great Vessel, External Approach (ICD-10-PCS; 2020-06-07)
PROC: B548ZZA Ultrasonography of Superior Vena Cava, Guidance (ICD-10-PCS; 2020-06-07)
PROC: 02H633Z Insertion of Infusion Device into Right Atrium, Percutaneous Approach (ICD-10-PCS; 2020-06-07)
PROC: 0JH63XZ Insertion of Tunneled Vascular Access Device into Chest Subcutaneous Tissue and Fascia, Percutaneous Approach (ICD-10-PCS; 2020-06-07)
PROC: 5A1D70Z Performance of Urinary Filtration, Intermittent, Less than 6 Hours Per Day (ICD-10-PCS; 2020-06-07)
DX: I13.2 Hypertensive heart and chronic kidney disease with heart failure and with stage 5 chronic kidney disease, or end stage renal disease (principal); I50.33 Acute on chronic diastolic (congestive) heart failure; N17.0 Acute kidney failure with tubular necrosis; N18.6 End stage renal disease; E87.1 Hypo-osmolality and hyponatremia; E87.2 Acidosis; E44.0 Moderate protein-calorie malnutrition; E87.5 Hyperkalemia; D63.8 Anemia in other chronic diseases classified elsewhere; E11.65 Type 2 diabetes mellitus with hyperglycemia; R26.2 Difficulty in walking, not elsewhere classified; E11.22 Type 2 diabetes mellitus with diabetic chronic kidney disease; E66.9 Obesity, unspecified; E83.51 Hypocalcemia; I25.10 Atherosclerotic heart disease of native coronary artery without angina pectoris; Z79.899 Other long term (current) drug therapy; Z87.441 Personal history of nephrotic syndrome; Z68.28 Body mass index [BMI] 28.0-28.9, adult; Z91.013 Allergy to seafood; Z79.4 Long term (current) use of insulin
CPT/HCPCS: 36415; 36556; 36558; 36589; 36600; 71045; 76937; 77001; 80048; 80053; 80061; 80305; 80320; 81003; 82010; 82375; 82550; 82553; 82607; 82746; 82805; 82962; 83036; 83540; 83550; 83615; 83735; 83880; 83930; 84100; 84145; 84484; 85025; 85379; 86705; 86706; 86709; 86803; 86850; 86900; 86920; 87340; 87426; 93005; 93306; 93970; 97110; 97116; 97162; 97166; 97530; 99152; 99153; 99285; C1750; C1752; C1769; C1887; J0690; J0885; J1644; J1650; J1815; J1940; J3010; J3490; J7070; P9016; G0480; G0500

== ENCOUNTER 2020-06-14 15:00 | Emergency (ER) | payer MEDICARE, MEDICAID ==
[~2020-06-14] VITALS: Ht 180.3 cm; Wt 92.0 kg
[2020-06-14 21:05] LABS: BASOPHILS % 0.8 % (0.0-2.0); EOSINOPHILS % 2.2 % (0.0-5.0); HEMATOCRIT. 24.7 % (42.0-52.0); HEMOGLOBIN. 8.4 g/dL (14.0-18.0); LYMPHOCYTES % 25.8 % (20.0-50.0); MEAN CORPUSCULAR HEMOGLOBIN 30.1 pg (28.0-32.0); MEAN CORPUSCULAR VOLUME 88.3 fL (80.0-94.0); MEAN PLATELET VOLUME 7.4 fl (7.4-10.4); MONOCYTES % 10.6 % (2.0-8.0); NEUTROPHILS % 60.6 % (40.0-76.0); PLATELET 180 x1000/uL (130-400); RED CELL DISTRIBUTION WIDTH 16.9 % (11.6-14.6)
[2020-06-14 21:13] LABS: CHLORIDE 103 mEq/L (98-107)
[2020-06-15 03:43] VITALS: BP 159/74
== END 2020-06-15 04:33 | disposition home or self-care (01) ==
LOC: ER 15:12
DX: I12.0 Hypertensive chronic kidney disease with stage 5 chronic kidney disease or end stage renal disease (principal); E11.22 Type 2 diabetes mellitus with diabetic chronic kidney disease; N18.6 End stage renal disease; B00.52 Herpesviral keratitis; Z99.2 Dependence on renal dialysis; Z79.4 Long term (current) use of insulin; Z79.899 Other long term (current) drug therapy; Z91.013 Allergy to seafood; Z20.828 Contact with and (suspected) exposure to other viral communicable diseases
CPT/HCPCS: 36415; 71045; 80053; 83605; 85025; 93005; 99285; C9803; U0003

== ENCOUNTER 2020-07-03 14:49 | Inpatient (IN) | payer MEDICARE, MEDICAID ==
[~2020-07-03] VITALS: Ht 177.8 cm; Wt 93.9 kg
[2020-07-03] MEDS ORDERED: SODIUM CHLORIDE 0.9% 1000ML BAG (SEPSIS BOLUS) IV ONE (15:30)
[2020-07-03] MEDS ORDERED: METOPROLOL TARTRATE 25MG TABLET PO ONE (16:15)
[2020-07-03] MEDS ORDERED: ASPIRIN 325MG EC TABLET PO ONE (16:15)
[2020-07-03] MEDS ORDERED: MORPHINE SULFATE 4 MG/ML CPJ (NOT FOR IM USE) IV ONE (16:30)
[2020-07-03] MEDS ORDERED: HEPARIN 5000 UNITS/ML VIAL IV ONE (16:30)
[2020-07-03 16:53] LABS: HEMOGLOBIN. 8.9 g/dL (14.0-18.0); MEAN CORPUSCULAR HEMOGLOBIN 30.1 pg (28.0-32.0); MEAN CORPUSCULAR VOLUME 91.6 fL (80.0-94.0); MEAN PLATELET VOLUME 9.2 fl (7.4-10.4); PLATELET 176 x1000/uL (130-400); RED BLOOD CELL COUNT 2.95 mill/uL (4.7-6.1); RED CELL DISTRIBUTION WIDTH 16.5 % (11.6-14.6)
[2020-07-03 16:58] LABS: CHLORIDE 99 mEq/L (98-107)
[2020-07-03 17:01] LABS: INR 1.3
[2020-07-03 17:03] LABS: ETHANOL BLOOD < 10 mg/dL
[2020-07-03] MEDS ORDERED: FENTANYL CITRATE/PF 50MCG/ML 2ML VIAL ONE (17:03)
[2020-07-03] MEDS ORDERED: MIDAZOLAM HCL 2 MG/2 ML VIAL ONE (17:03)
[2020-07-03] MEDS ORDERED: LIDOCAINE HCL 1% 20ML VIAL (Pyxis) INJ ONE (17:04)
[2020-07-03] MEDS ORDERED: IODIXANOL 320MG/ML 100 ML BOTTLE IV ONE (17:04)
[2020-07-03 17:05] LABS: BETA HYDROXYBUTYRATE 6.5 mMol/L (0.0-0.3)
[2020-07-03] MEDS ORDERED: DIPHENHYDRAMINE 50MG/ML VIAL ONE (17:07)
[2020-07-03] MEDS ORDERED: HYDROCORTISONE SOD SUCCINATE 250 MG/2 ML VIAL ONE (17:07)
[2020-07-03] MEDS ORDERED: FAMOTIDINE 20MG/2ML VIAL IV ONE (17:08)
[2020-07-03] MEDS ORDERED: VERAPAMIL HCL 2.5 MG/1 ML 2ML VIAL IV ONE (17:13)
[2020-07-03 17:14] LABS: PLATELET ESTIMATE NORMAL
[2020-07-03] MEDS ORDERED: INSULIN REGULAR (DRIP) 100 UNITS in SODIUM CHLORIDE 0.9% 99 ML IV PRN (17:30)
[2020-07-03] MEDS ORDERED: INSULIN REGULAR (HUMULIN R) 300UNITS/3ML VIAL IV ONE (17:30)
[2020-07-03] MEDS ORDERED: HEPARIN 25,000 UNITS PREMIX 250 ML IV SCH ×2 (19:30→23:00)
[2020-07-03] MEDS ORDERED: NOREPINEPHRINE 8 MG in DEXT 5% WATER 242 ML IV PRN (19:45)
[2020-07-03] MEDS ORDERED: ATORVASTATIN CALCIUM 40MG TABLET PO SCH (21:00)
[2020-07-03] MEDS: ATORVASTATIN CALCIUM 40MG TABLET PO SCH (21:00)
[2020-07-04] MEDS ORDERED: HEPARIN BOLUS PRN aPTT 30-44 IV (06:00)
[2020-07-04] MEDS ORDERED: HEPARIN BOLUS PRN aPTT <30 IV (06:00)
[2020-07-04] MEDS ORDERED: DIPHENHYDRAMINE 50MG/ML VIAL IV PRN (08:15)
[2020-07-04] MEDS ORDERED: ONDANSETRON HCL 4MG/2ML INJ IV PRN (08:15)
[2020-07-04] MEDS ORDERED: IPRATROPIUM/ALBUTEROL 0.5-3(2.5)MG/3ML NEB HHN PRN (08:15)
[2020-07-04] MEDS ORDERED: LORAZEPAM 2MG/ML CPJ IV PRN (08:15)
[2020-07-04] MEDS ORDERED: DEXTROSE 50% WATER 50ML SYRINGE IV PRN ×2 (08:15)
[2020-07-04] MEDS ORDERED: HYDROCODONE/ACETAMINOPHEN 10/325MG TABLET PO PRN (08:15)
[2020-07-04] MEDS ORDERED: MAGNESIUM/ALUMINUM HYDROXIDE/SIMETHICONE 30ML UDC PO PRN (08:15)
[2020-07-04] MEDS ORDERED: GUAIFENESIN 200MG/10ML SUGAR FREE UDC PO PRN (08:15)
[2020-07-04] MEDS ORDERED: MORPHINE SULFATE 2 MG/ML CPJ (NOT FOR IM USE) IV PRN (08:15)
[2020-07-04] MEDS ORDERED: ACETAMINOPHEN 325MG TABLET PO PRN (08:15)
[2020-07-04] MEDS ORDERED: CLONIDINE 0.1MG TABLET PO PRN (08:15)
[2020-07-04] MEDS ORDERED: DOCUSATE SODIUM 100MG CAPSULE PO PRN (08:15)
[2020-07-04] MEDS ORDERED: HYDRALAZINE 20MG/ML VIAL IV PRN (08:15)
[2020-07-04] MEDS ORDERED: FENTANYL CITRATE/PF 50MCG/ML 2ML VIAL ONE (08:38)
[2020-07-04] MEDS ORDERED: MIDAZOLAM HCL 2 MG/2 ML VIAL ONE (08:38)
[2020-07-04] MEDS ORDERED: LIDOCAINE HCL 1% 20ML VIAL (Pyxis) INJ ONE (08:39)
[2020-07-04] MEDS ORDERED: IODIXANOL 320MG/ML 100 ML BOTTLE IV ONE ×2 (08:39→10:10)
[2020-07-04] MEDS ORDERED: HYDROCORTISONE SOD SUCCINATE 250 MG/2 ML VIAL ONE (08:39)
[2020-07-04] MEDS ORDERED: FAMOTIDINE 20MG/2ML VIAL IV ONE (08:40)
[2020-07-04] MEDS ORDERED: VERAPAMIL HCL 2.5 MG/1 ML 2ML VIAL IV ONE (08:47)
[2020-07-04] MEDS ORDERED: INSULIN REGULAR (DRIP) 100 UNITS in SODIUM CHLORIDE 0.9% 100 ML IV SCH (09:00)
[2020-07-04] MEDS ORDERED: DOPAMINE 400MG/250ML PREMIX 0 ML IV ONE (09:24)
[2020-07-04] MEDS ORDERED: IOHEXOL-300 100 ML BOTTLE ONE (09:48)
[2020-07-04] MEDS ORDERED: HEPARIN SODIUM 1,000 UNIT/1ML VIAL IV ONE (10:00)
[2020-07-04] MEDS ORDERED: NICARDIPINE 100MCG/ML 10ML VIAL (CATH LAB) IV ONE (10:00)
[2020-07-04] MEDS ORDERED: CLOPIDOGREL 75MG TABLET ONE (10:45)
[2020-07-04] MEDS ORDERED: SODIUM CHLORIDE 0.45% 400 ML IV SCH (12:00)
[2020-07-04] MEDS: BLOOD SUGAR DIAGNOSTIC STRIP TEST SCH ×6 (12:54→23:00)
[2020-07-04 14:57] LABS: CREATINE KINASE MB FRACTION 102.1 ng/mL (0.5-3.6)
[2020-07-04] MEDS: SODIUM CHLORIDE 0.9% INJ 3ML FLUSH IVF SCH ×2 (15:44→22:18)
[2020-07-04] MEDS: ATORVASTATIN CALCIUM 40MG TABLET PO SCH (22:27)
[2020-07-04 23:57] LABS: CREATINE KINASE MB FRACTION 89.8 ng/mL (0.5-3.6)
[2020-07-05] MEDS: BLOOD SUGAR DIAGNOSTIC STRIP TEST SCH ×12 (01:43→21:00)
[2020-07-05 04:44] LABS: MEAN CORPUSCULAR HEMOGLOBIN 29.4 pg (28.0-32.0); MEAN CORPUSCULAR VOLUME 88.5 fL (80.0-94.0); PLATELET 175 x1000/uL (130-400); RED BLOOD CELL COUNT 3.39 mill/uL (4.7-6.1); RED CELL DISTRIBUTION WIDTH 16.5 % (11.6-14.6)
[2020-07-05 04:51] LABS: CHLORIDE 101 mEq/L (98-107)
[2020-07-05 04:57] LABS: PHOSPHORUS 7.3 mg/dL (2.5-4.9)
[2020-07-05] MEDS: SODIUM CHLORIDE 0.9% INJ 3ML FLUSH IVF SCH ×2 (06:00→22:00)
[2020-07-05] MEDS: CALCIUM ACETATE 667MG CAPSULE PO SCH ×4 (07:00→17:00)
[2020-07-05] MEDS: INSULIN LISPRO 100 UNITS/ML SUBCUT SCH ×4 (07:00→21:00)
[2020-07-05] MEDS ORDERED: DEXTROSE 50% WATER 50ML SYRINGE IV PRN (07:00)
[2020-07-05] MEDS: CLOPIDOGREL 75MG TABLET PO SCH (09:54)
[2020-07-05] MEDS ORDERED: INSULIN GLARGINE UD 100 UNITS/ML SYR SUBCUT SCH (10:00)
[2020-07-05 10:53] LABS: PLATELET ESTIMATE NORMAL
[2020-07-05] MEDS ORDERED: FENTANYL CITRATE/PF 50MCG/ML 5ML VIAL ONE (12:01)
[2020-07-05] MEDS ORDERED: MIDAZOLAM HCL 5 MG/5 ML VIAL ONE (12:02)
[2020-07-05] MEDS ORDERED: LIDOCAINE HCL 1% 20ML VIAL (Pyxis) INJ ONE (12:03)
[2020-07-05] MEDS: ASPIRIN 81MG TABLET PO SCH (12:49)
[2020-07-05] MEDS: DEXAMETHASONE 10 MG/ML VIAL IV SCH (14:00)
[2020-07-05] MEDS ORDERED: CEFTRIAXONE 1 G PREMIX 50 ML IV SCH (14:00)
[2020-07-05] MEDS: CEFTRIAXONE 1,000 MG in DEXTROSE 5% WATER 50 ML IV SCH (15:00)
[2020-07-05] MEDS: AZITHROMYCIN 500 MG in DEXT 5% WATER 250 ML IV SCH (15:00)
[2020-07-05] MEDS ORDERED: ALBUTEROL 6.7GM HFA INHALER ORI PRN (16:00)
[2020-07-05] MEDS ORDERED: EPOETIN ALFA 10000UNITS/ML VIAL SUBCUT SCH (21:00)
[2020-07-05] MEDS: ATORVASTATIN CALCIUM 40MG TABLET PO SCH (21:00)
[2020-07-05] MEDS: INSULIN GLARGINE UD 100 UNITS/ML SYR SUBCUT SCH (22:00)
[2020-07-06 02:10] VITALS: BP_SYST 116; BP_SYST 131; BP_DIAS 75; BP_DIAS 87
[2020-07-06 04:00] VITALS: BP 113/84
[2020-07-06] MEDS: SODIUM CHLORIDE 0.9% INJ 3ML FLUSH IVF SCH ×3 (06:00→22:00)
[2020-07-06] MEDS: INSULIN LISPRO 100 UNITS/ML SUBCUT SCH ×4 (07:00→21:00)
[2020-07-06] MEDS: BLOOD SUGAR DIAGNOSTIC STRIP TEST SCH ×5 (07:14→21:00)
[2020-07-06] MEDS: INSULIN GLARGINE UD 100 UNITS/ML SYR SUBCUT SCH ×2 (10:00→22:00)
[2020-07-06] MEDS: DEXAMETHASONE 10 MG/ML VIAL IV SCH (11:12)
[2020-07-06] MEDS: ASPIRIN 81MG TABLET PO SCH (11:12)
[2020-07-06] MEDS: CALCIUM ACETATE 667MG CAPSULE PO SCH ×4 (11:12→18:10)
[2020-07-06] MEDS: CLOPIDOGREL 75MG TABLET PO SCH (11:13)
[2020-07-06 12:00] VITALS: BP 122/83
[2020-07-06 12:04] LABS: HEMATOCRIT. 30.2 % (42.0-52.0); HEMOGLOBIN. 9.7 g/dL (14.0-18.0); MEAN CORPUSCULAR VOLUME 90.4 fL (80.0-94.0); MEAN PLATELET VOLUME 8.7 fl (7.4-10.4); PLATELET 151 x1000/uL (130-400); RED BLOOD CELL COUNT 3.34 mill/uL (4.7-6.1); RED CELL DISTRIBUTION WIDTH 16.6 % (11.6-14.6)
[2020-07-06] MEDS ORDERED: GUAIFENESIN-DM 200MG-20MG/10ML UDC PO PRN (14:30)
[2020-07-06] MEDS: BENZONATATE 100MG CAPSULE PO SCH (15:18)
[2020-07-06 16:00] VITALS: BP 98/70
[2020-07-06 17:04] LABS: PLATELET ESTIMATE NORMAL
[2020-07-06] MEDS ORDERED: HEPARIN SODIUM 1,000 UNIT/1ML VIAL IV NR (18:30)
[2020-07-06 20:00] VITALS: BP 110/74
[2020-07-06] MEDS: CEFTRIAXONE 1,000 MG in DEXTROSE 5% WATER 50 ML IV SCH (22:25)
[2020-07-06] MEDS: AZITHROMYCIN 500 MG in DEXT 5% WATER 250 ML IV SCH (22:25)
[2020-07-07] VITALS: BP 115/75
[2020-07-07 04:00] VITALS: BP 106/72
[2020-07-07] MEDS: ATORVASTATIN CALCIUM 40MG TABLET PO SCH ×3 (06:54→23:37)
[2020-07-07] MEDS: SODIUM CHLORIDE 0.9% INJ 3ML FLUSH IVF SCH ×3 (06:55→22:00)
[2020-07-07] MEDS: BENZONATATE 100MG CAPSULE PO SCH ×5 (06:55→23:36)
[2020-07-07] MEDS: BLOOD SUGAR DIAGNOSTIC STRIP TEST SCH ×4 (06:56→21:00)
[2020-07-07 08:00] VITALS: BP 113/79
[2020-07-07] MEDS: INSULIN LISPRO 100 UNITS/ML SUBCUT SCH ×4 (08:10→21:00)
[2020-07-07] MEDS: CLOPIDOGREL 75MG TABLET PO SCH (09:16)
[2020-07-07] MEDS: DEXAMETHASONE 10 MG/ML VIAL IV SCH (09:16)
[2020-07-07] MEDS: CALCIUM ACETATE 667MG CAPSULE PO SCH ×3 (09:16→18:06)
[2020-07-07] MEDS: ASPIRIN 81MG TABLET PO SCH (09:16)
[2020-07-07] MEDS: INSULIN GLARGINE UD 100 UNITS/ML SYR SUBCUT SCH ×3 (11:02→23:40)
[2020-07-07] MEDS: CEFTRIAXONE 1,000 MG in DEXTROSE 5% WATER 50 ML IV SCH (15:51)
[2020-07-07 16:00] VITALS: BP 135/81
[2020-07-07] MEDS: AZITHROMYCIN 500 MG in DEXT 5% WATER 250 ML IV SCH (17:39)
[2020-07-07 20:00] VITALS: BP 127/89
[2020-07-07] MEDS: EPOETIN ALFA-EPBX 10,000 UNIT/ML VIAL SUBCUT SCH ×2 (21:00→23:35)
[2020-07-08] VITALS: BP 111/81
[2020-07-08 04:00] VITALS: BP 125/90
[2020-07-08] MEDS: SODIUM CHLORIDE 0.9% INJ 3ML FLUSH IVF SCH ×3 (06:00→22:00)
[2020-07-08 06:25] LABS: HEMATOCRIT. 30.9 % (42.0-52.0); HEMOGLOBIN. 10.1 g/dL (14.0-18.0); MEAN CORPUSCULAR HEMOGLOBIN 29.5 pg (28.0-32.0); MEAN PLATELET VOLUME 7.7 fl (7.4-10.4); PLATELET 111 x1000/uL (130-400); RED BLOOD CELL COUNT 3.43 mill/uL (4.7-6.1); RED CELL DISTRIBUTION WIDTH 16.1 % (11.6-14.6)
[2020-07-08 06:42] LABS: PHOSPHORUS 7.1 mg/dL (2.5-4.9)
[2020-07-08] MEDS: BENZONATATE 100MG CAPSULE PO SCH ×3 (07:00→23:00)
[2020-07-08 08:00] VITALS: BP 109/64
[2020-07-08] MEDS: INSULIN LISPRO 100 UNITS/ML SUBCUT SCH ×3 (08:10→17:48)
[2020-07-08] MEDS: BLOOD SUGAR DIAGNOSTIC STRIP TEST SCH ×4 (08:13→21:00)
[2020-07-08] MEDS: DEXAMETHASONE 10 MG/ML VIAL IV SCH (08:18)
[2020-07-08] MEDS: ASPIRIN 81MG TABLET PO SCH (08:18)
[2020-07-08] MEDS: CLOPIDOGREL 75MG TABLET PO SCH (08:18)
[2020-07-08] MEDS: CALCIUM ACETATE 667MG CAPSULE PO SCH ×3 (08:18→17:39)
[2020-07-08] MEDS: INSULIN GLARGINE UD 100 UNITS/ML SYR SUBCUT SCH (09:56)
[2020-07-08 12:00] VITALS: BP 95/65
[2020-07-08 13:57] LABS: PLATELET ESTIMATE DECREASED
[2020-07-08] MEDS: CEFTRIAXONE 1,000 MG in DEXTROSE 5% WATER 50 ML IV SCH (14:36)
[2020-07-08] MEDS: AZITHROMYCIN 500 MG in DEXT 5% WATER 250 ML IV SCH (14:36)
[2020-07-08 16:00] VITALS: BP 98/54
[2020-07-08] MEDS: ATORVASTATIN CALCIUM 40MG TABLET PO SCH (21:00)
[2020-07-09] VITALS: BP 94/61
[2020-07-09] MEDS: INSULIN GLARGINE UD 100 UNITS/ML SYR SUBCUT SCH ×2 (00:55→10:00)
[2020-07-09] MEDS: INSULIN LISPRO 100 UNITS/ML SUBCUT SCH ×5 (00:56→20:58)
[2020-07-09 04:00] VITALS: BP 104/52
[2020-07-09] MEDS: BLOOD SUGAR DIAGNOSTIC STRIP TEST SCH ×4 (07:55→20:58)
[2020-07-09 08:00] VITALS: BP 111/73
[2020-07-09] MEDS: CALCIUM ACETATE 667MG CAPSULE PO SCH ×3 (08:16→17:49)
[2020-07-09] MEDS: SODIUM CHLORIDE 0.9% INJ 3ML FLUSH IVF SCH ×3 (08:16→21:11)
[2020-07-09] MEDS: ASPIRIN 81MG TABLET PO SCH (08:17)
[2020-07-09] MEDS: BENZONATATE 100MG CAPSULE PO SCH ×2 (08:17→15:00)
[2020-07-09] MEDS: CLOPIDOGREL 75MG TABLET PO SCH (08:17)
[2020-07-09] MEDS: DEXAMETHASONE 10 MG/ML VIAL IV SCH (08:29)
[2020-07-09 16:00] VITALS: BP 111/73
[2020-07-09] MEDS: AZITHROMYCIN 500 MG in DEXT 5% WATER 250 ML IV SCH (16:11)
[2020-07-09] MEDS: CEFTRIAXONE 1,000 MG in DEXTROSE 5% WATER 50 ML IV SCH (16:11)
[2020-07-09 20:00] VITALS: BP 97/62
[2020-07-09] MEDS: ATORVASTATIN CALCIUM 40MG TABLET PO SCH (21:12)
[2020-07-10 04:00] VITALS: BP 101/50
[2020-07-10] MEDS: SODIUM CHLORIDE 0.9% INJ 3ML FLUSH IVF SCH ×3 (05:51→20:24)
[2020-07-10] MEDS: BLOOD SUGAR DIAGNOSTIC STRIP TEST SCH ×4 (05:51→20:24)
[2020-07-10] MEDS: INSULIN LISPRO 100 UNITS/ML SUBCUT SCH ×4 (07:54→20:24)
[2020-07-10 08:00] VITALS: BP 100/58
[2020-07-10] MEDS: DEXAMETHASONE 10 MG/ML VIAL IV SCH (08:57)
[2020-07-10] MEDS: CALCIUM ACETATE 667MG CAPSULE PO SCH ×3 (08:57→17:33)
[2020-07-10] MEDS: ASPIRIN 81MG TABLET PO SCH (08:57)
[2020-07-10] MEDS: CLOPIDOGREL 75MG TABLET PO SCH (08:57)
[2020-07-10 09:04] LABS: HEMOGLOBIN. 9.4 g/dL (14.0-18.0); MEAN CORPUSCULAR HEMOGLOBIN 29.2 pg (28.0-32.0); MEAN CORPUSCULAR VOLUME 90.1 fL (80.0-94.0); MEAN PLATELET VOLUME 8.7 fl (7.4-10.4); PLATELET 119 x1000/uL (130-400); RED BLOOD CELL COUNT 3.22 mill/uL (4.7-6.1); RED CELL DISTRIBUTION WIDTH 16.3 % (11.6-14.6)
[2020-07-10] MEDS: INSULIN GLARGINE UD 100 UNITS/ML SYR SUBCUT SCH (10:00)
[2020-07-10 12:00] VITALS: BP 99/58
[2020-07-10 16:00] VITALS: BP 103/62
[2020-07-10 20:00] VITALS: BP 111/64
[2020-07-10 22:54] LABS: PLATELET ESTIMATE DECREASED
[2020-07-11] VITALS: BP 100/63
[2020-07-11 04:00] VITALS: BP 115/72
[2020-07-11] MEDS: SODIUM CHLORIDE 0.9% INJ 3ML FLUSH IVF SCH ×3 (06:00→20:29)
[2020-07-11] MEDS: BLOOD SUGAR DIAGNOSTIC STRIP TEST SCH ×4 (07:45→20:29)
[2020-07-11] MEDS: INSULIN LISPRO 100 UNITS/ML SUBCUT SCH ×4 (07:45→20:29)
[2020-07-11 08:00] VITALS: BP 113/76
[2020-07-11 08:54] LABS: HEMOGLOBIN. 8.1 g/dL (14.0-18.0); MEAN CORPUSCULAR HEMOGLOBIN 29.9 pg (28.0-32.0); MEAN CORPUSCULAR VOLUME 88.9 fL (80.0-94.0); MEAN PLATELET VOLUME 7.2 fl (7.4-10.4); PLATELET 102 x1000/uL (130-400); RED CELL DISTRIBUTION WIDTH 16.5 % (11.6-14.6)
[2020-07-11] MEDS: CLOPIDOGREL 75MG TABLET PO SCH (09:16)
[2020-07-11] MEDS: CALCIUM ACETATE 667MG CAPSULE PO SCH ×3 (09:16→18:05)
[2020-07-11] MEDS: DEXAMETHASONE 10 MG/ML VIAL IV SCH (09:16)
[2020-07-11] MEDS: ASPIRIN 81MG TABLET PO SCH (09:16)
[2020-07-11] MEDS: INSULIN GLARGINE UD 100 UNITS/ML SYR SUBCUT SCH (09:17)
[2020-07-11 12:00] VITALS: BP 98/65
[2020-07-11 16:00] VITALS: BP 108/68
[2020-07-11 20:00] VITALS: BP 126/84
[2020-07-11 23:09] LABS: PLATELET ESTIMATE DECREASED
[2020-07-12] VITALS: BP 115/79
[2020-07-12 04:00] VITALS: BP 130/80
[2020-07-12] MEDS: SODIUM CHLORIDE 0.9% INJ 3ML FLUSH IVF SCH ×3 (06:00→20:44)
[2020-07-12 07:23] LABS: HEMATOCRIT. 24.1 % (42.0-52.0); HEMOGLOBIN. 7.9 g/dL (14.0-18.0); MEAN CORPUSCULAR HEMOGLOBIN 29.4 pg (28.0-32.0); MEAN CORPUSCULAR VOLUME 90.1 fL (80.0-94.0); MEAN PLATELET VOLUME 8.4 fl (7.4-10.4); PLATELET 125 x1000/uL (130-400); RED BLOOD CELL COUNT 2.68 mill/uL (4.7-6.1); RED CELL DISTRIBUTION WIDTH 16.2 % (11.6-14.6)
[2020-07-12] MEDS: BLOOD SUGAR DIAGNOSTIC STRIP TEST SCH ×4 (07:34→20:44)
[2020-07-12 08:00] VITALS: BP 119/60
[2020-07-12] MEDS: CLOPIDOGREL 75MG TABLET PO SCH (08:21)
[2020-07-12] MEDS: DEXAMETHASONE 10 MG/ML VIAL IV SCH (08:21)
[2020-07-12] MEDS: ASPIRIN 81MG TABLET PO SCH (08:21)
[2020-07-12] MEDS: CALCIUM ACETATE 667MG CAPSULE PO SCH ×3 (08:21→18:08)
[2020-07-12] MEDS: INSULIN LISPRO 100 UNITS/ML SUBCUT SCH ×4 (08:22→20:44)
[2020-07-12] MEDS: INSULIN GLARGINE UD 100 UNITS/ML SYR SUBCUT SCH (10:51)
[2020-07-12 12:00] VITALS: BP 138/82
[2020-07-12 14:08] LABS: PLATELET ESTIMATE SLIGHTLY DECREASED
[2020-07-12 16:00] VITALS: BP 112/69
[2020-07-12 20:00] VITALS: BP 132/94
[2020-07-13] VITALS: BP 127/79
[2020-07-13] MEDS: SODIUM CHLORIDE 0.9% INJ 3ML FLUSH IVF SCH ×3 (06:28→21:36)
[2020-07-13 07:27] LABS: HEMATOCRIT. 24.2 % (42.0-52.0); HEMOGLOBIN. 7.8 g/dL (14.0-18.0); MEAN CORPUSCULAR HEMOGLOBIN 29.6 pg (28.0-32.0); MEAN CORPUSCULAR VOLUME 91.2 fL (80.0-94.0); MEAN PLATELET VOLUME 8.3 fl (7.4-10.4); PLATELET 111 x1000/uL (130-400); RED BLOOD CELL COUNT 2.65 mill/uL (4.7-6.1); RED CELL DISTRIBUTION WIDTH 16.6 % (11.6-14.6)
[2020-07-13] MEDS: INSULIN LISPRO 100 UNITS/ML SUBCUT SCH ×4 (07:50→21:37)
[2020-07-13] MEDS: BLOOD SUGAR DIAGNOSTIC STRIP TEST SCH ×4 (07:54→21:32)
[2020-07-13 08:00] VITALS: BP 134/80
[2020-07-13] MEDS: CALCIUM ACETATE 667MG CAPSULE PO SCH ×3 (08:52→17:41)
[2020-07-13] MEDS: CLOPIDOGREL 75MG TABLET PO SCH (08:52)
[2020-07-13] MEDS: ASPIRIN 81MG TABLET PO SCH (08:52)
[2020-07-13] MEDS: DEXAMETHASONE 10 MG/ML VIAL IV SCH (08:53)
[2020-07-13] MEDS: INSULIN GLARGINE UD 100 UNITS/ML SYR SUBCUT SCH (09:46)
[2020-07-13 12:00] VITALS: BP 114/64
[2020-07-13] MEDS ORDERED: HYDRALAZINE 10 MG in SODIUM CHLORIDE 0.9% 49.5 ML IV PRN (15:30)
[2020-07-13 16:00] VITALS: BP 116/68
[2020-07-13 17:23] LABS: PLATELET ESTIMATE DECREASED
[2020-07-13 20:00] VITALS: BP 119/73
[2020-07-13 23:27] VITALS: BP 109/78
[2020-07-14 04:00] VITALS: BP 123/69
[2020-07-14] MEDS: SODIUM CHLORIDE 0.9% INJ 3ML FLUSH IVF SCH ×2 (06:19→14:00)
[2020-07-14] MEDS: BLOOD SUGAR DIAGNOSTIC STRIP TEST SCH ×4 (07:39→21:00)
[2020-07-14] MEDS: INSULIN LISPRO 100 UNITS/ML SUBCUT SCH ×3 (07:39→19:34)
[2020-07-14 08:00] VITALS: BP 102/57
[2020-07-14] MEDS: CALCIUM ACETATE 667MG CAPSULE PO SCH ×3 (09:38→19:15)
[2020-07-14] MEDS: DEXAMETHASONE 10 MG/ML VIAL IV SCH (09:38)
[2020-07-14] MEDS: CLOPIDOGREL 75MG TABLET PO SCH (09:38)
[2020-07-14] MEDS: ASPIRIN 81MG TABLET PO SCH (09:38)
[2020-07-14] MEDS: INSULIN GLARGINE UD 100 UNITS/ML SYR SUBCUT SCH (09:45)
[2020-07-14 20:00] VITALS: BP 96/59
[2020-07-15] MEDS: SODIUM CHLORIDE 0.9% INJ 3ML FLUSH IVF SCH ×2 (00:04→06:46)
[2020-07-15] MEDS: INSULIN LISPRO 100 UNITS/ML SUBCUT SCH ×5 (00:04→22:16)
[2020-07-15] MEDS: BLOOD SUGAR DIAGNOSTIC STRIP TEST SCH ×4 (06:45→21:00)
[2020-07-15 07:24] LABS: HEMATOCRIT. 23.7 % (42.0-52.0); HEMOGLOBIN. 7.7 g/dL (14.0-18.0); MEAN CORPUSCULAR HEMOGLOBIN 29.7 pg (28.0-32.0); MEAN CORPUSCULAR VOLUME 91.4 fL (80.0-94.0); MEAN PLATELET VOLUME 8.5 fl (7.4-10.4); PLATELET 123 x1000/uL (130-400); RED CELL DISTRIBUTION WIDTH 17.3 % (11.6-14.6)
[2020-07-15 08:00] VITALS: BP 116/66
[2020-07-15] MEDS: CALCIUM ACETATE 667MG CAPSULE PO SCH ×3 (10:13→18:43)
[2020-07-15] MEDS: CLOPIDOGREL 75MG TABLET PO SCH (10:13)
[2020-07-15] MEDS: ASPIRIN 81MG TABLET PO SCH (10:13)
[2020-07-15] MEDS: DEXAMETHASONE 10 MG/ML VIAL IV SCH (10:14)
[2020-07-15] MEDS: INSULIN GLARGINE UD 100 UNITS/ML SYR SUBCUT SCH (10:22)
[2020-07-15 13:53] LABS: PLATELET ESTIMATE SLIGHTLY DECREASED
[2020-07-16] MEDS: INSULIN LISPRO 100 UNITS/ML SUBCUT SCH ×4 (07:50→20:28)
[2020-07-16] MEDS: BLOOD SUGAR DIAGNOSTIC STRIP TEST SCH ×4 (07:59→20:22)
[2020-07-16 08:00] VITALS: BP 123/65
[2020-07-16 08:44] LABS: HEMATOCRIT 23.1 % (42.0-52.0); HEMOGLOBIN 7.5 g/dL (14.0-18.0); MEAN CORPUSCULAR HEMOGLOBIN 29.8 pg (28.0-32.0); MEAN CORPUSCULAR VOLUME 92.2 fL (80.0-94.0); PLATELET 112 x1000/uL (130-400); RED BLOOD CELL COUNT 2.51 mill/uL (4.7-6.1); RED CELL DISTRIBUTION WIDTH 17.6 % (11.6-14.6)
[2020-07-16] MEDS: ASPIRIN 81MG TABLET PO SCH (09:15)
[2020-07-16] MEDS: CLOPIDOGREL 75MG TABLET PO SCH (09:15)
[2020-07-16] MEDS: CALCIUM ACETATE 667MG CAPSULE PO SCH ×3 (09:15→17:48)
[2020-07-16] MEDS: INSULIN GLARGINE UD 100 UNITS/ML SYR SUBCUT SCH (10:56)
[2020-07-16 12:00] VITALS: BP 92/60
[2020-07-16] MEDS: SODIUM CHLORIDE 0.9% INJ 3ML FLUSH IVF SCH ×2 (14:25→21:02)
[2020-07-16 14:40] LABS: TOTAL IRON BINDING CAPACITY 192 ug/dL (250-450)
[2020-07-16 16:00] VITALS: BP 120/68
[2020-07-16 20:00] VITALS: BP 110/65
[2020-07-17] VITALS (7 sets, daily range): BP systolic 105–135; BP diastolic 60–83
[2020-07-17] MEDS: SODIUM CHLORIDE 0.9% INJ 3ML FLUSH IVF SCH ×3 (05:04→21:39)
[2020-07-17 06:37] LABS: HEMATOCRIT. 21.1 % (42.0-52.0); MEAN CORPUSCULAR HEMOGLOBIN 30.1 pg (28.0-32.0); MEAN CORPUSCULAR VOLUME 93.2 fL (80.0-94.0); MEAN PLATELET VOLUME 8.9 fl (7.4-10.4); PLATELET 105 x1000/uL (130-400); RED BLOOD CELL COUNT 2.27 mill/uL (4.7-6.1); RED CELL DISTRIBUTION WIDTH 16.9 % (11.6-14.6)
[2020-07-17 06:46] LABS: HEMOGLOBIN. 6.8 g/dL (14.0-18.0)
[2020-07-17] MEDS: BLOOD SUGAR DIAGNOSTIC STRIP TEST SCH ×4 (07:00→21:18)
[2020-07-17] MEDS: INSULIN LISPRO 100 UNITS/ML SUBCUT SCH ×4 (07:50→21:00)
[2020-07-17] MEDS: CALCIUM ACETATE 667MG CAPSULE PO SCH ×3 (09:39→17:46)
[2020-07-17] MEDS: ASPIRIN 81MG TABLET PO SCH (09:39)
[2020-07-17] MEDS: CLOPIDOGREL 75MG TABLET PO SCH (09:39)
[2020-07-17] MEDS: INSULIN GLARGINE UD 100 UNITS/ML SYR SUBCUT SCH (09:43)
[2020-07-17 20:57] LABS: PLATELET ESTIMATE DECREASED
[2020-07-17] MEDS ORDERED: EPOETIN ALFA-EPBX 10,000 UNIT/ML VIAL SUBCUT SCH (21:00)
[2020-07-18] MEDS: SODIUM CHLORIDE 0.9% INJ 3ML FLUSH IVF SCH ×3 (06:10→22:00)
[2020-07-18] MEDS: BLOOD SUGAR DIAGNOSTIC STRIP TEST SCH ×4 (06:46→21:09)
[2020-07-18] MEDS: ASPIRIN 81MG TABLET PO SCH (10:09)
[2020-07-18] MEDS: CALCIUM ACETATE 667MG CAPSULE PO SCH ×3 (10:09→19:21)
[2020-07-18] MEDS: CLOPIDOGREL 75MG TABLET PO SCH (10:12)
[2020-07-18] MEDS: INSULIN GLARGINE UD 100 UNITS/ML SYR SUBCUT SCH (10:17)
[2020-07-18] MEDS: INSULIN LISPRO 100 UNITS/ML SUBCUT SCH ×4 (10:18→21:00)
[2020-07-18 20:00] VITALS: BP 103/50
[2020-07-19] VITALS: BP 128/69
[2020-07-19 04:00] VITALS: BP 121/69
[2020-07-19 04:51] LABS: HEMATOCRIT. 25.8 % (42.0-52.0); HEMOGLOBIN. 8.5 g/dL (14.0-18.0); MEAN CORPUSCULAR HEMOGLOBIN 29.8 pg (28.0-32.0); MEAN CORPUSCULAR VOLUME 90.6 fL (80.0-94.0); MEAN PLATELET VOLUME 8.9 fl (7.4-10.4); PLATELET 100 x1000/uL (130-400); RED BLOOD CELL COUNT 2.85 mill/uL (4.7-6.1); RED CELL DISTRIBUTION WIDTH 16.1 % (11.6-14.6)
[2020-07-19] MEDS: SODIUM CHLORIDE 0.9% INJ 3ML FLUSH IVF SCH ×2 (06:00→21:00)
[2020-07-19] MEDS: BLOOD SUGAR DIAGNOSTIC STRIP TEST SCH ×4 (07:00→21:37)
[2020-07-19] MEDS: INSULIN LISPRO 100 UNITS/ML SUBCUT SCH ×4 (07:41→21:36)
[2020-07-19 08:00] VITALS: BP 126/81
[2020-07-19] MEDS: ASPIRIN 81MG TABLET PO SCH (09:41)
[2020-07-19] MEDS: CLOPIDOGREL 75MG TABLET PO SCH (09:41)
[2020-07-19] MEDS: CALCIUM ACETATE 667MG CAPSULE PO SCH ×3 (09:43→18:35)
[2020-07-19] MEDS: INSULIN GLARGINE UD 100 UNITS/ML SYR SUBCUT SCH (11:15)
[2020-07-19 12:00] VITALS: BP 106/68
[2020-07-19 14:21] LABS: PLATELET ESTIMATE SLIGHTLY DECREASED
[2020-07-19 16:00] VITALS: BP 110/69
[2020-07-19] MEDS: PANTOPRAZOLE SODIUM 40 MG/VIAL IV SCH (18:35)
[2020-07-19] MEDS: SUCRALFATE 1G TABLET PO SCH ×2 (18:35→21:35)
[2020-07-19 20:00] VITALS: BP 122/80
[2020-07-20] VITALS: BP 110/76
[2020-07-20] MEDS: SODIUM CHLORIDE 0.9% INJ 3ML FLUSH IVF SCH ×3 (06:21→22:43)
[2020-07-20] MEDS: BLOOD SUGAR DIAGNOSTIC STRIP TEST SCH ×4 (06:21→20:29)
[2020-07-20] MEDS: SUCRALFATE 1G TABLET PO SCH ×4 (06:21→20:34)
[2020-07-20] MEDS: INSULIN LISPRO 100 UNITS/ML SUBCUT SCH ×4 (07:20→20:51)
[2020-07-20] MEDS: CALCIUM ACETATE 667MG CAPSULE PO SCH ×3 (07:40→17:40)
[2020-07-20 08:00] VITALS: BP 111/78
[2020-07-20] MEDS: ASPIRIN 81MG TABLET PO SCH (09:59)
[2020-07-20] MEDS: CLOPIDOGREL 75MG TABLET PO SCH (09:59)
[2020-07-20] MEDS: PANTOPRAZOLE SODIUM 40 MG/VIAL IV SCH ×2 (09:59→18:09)
[2020-07-20] MEDS: INSULIN GLARGINE UD 100 UNITS/ML SYR SUBCUT SCH (10:00)
[2020-07-20] MEDS ORDERED: LORAZEPAM 0.5MG TABLET PO PRN (17:00)
[2020-07-20 17:22] LABS: HEMATOCRIT. 26.7 % (42.0-52.0); HEMOGLOBIN. 8.6 g/dL (14.0-18.0); MEAN CORPUSCULAR VOLUME 93.4 fL (80.0-94.0); MEAN PLATELET VOLUME 7.9 fl (7.4-10.4); PLATELET 88 x1000/uL (130-400); RED BLOOD CELL COUNT 2.86 mill/uL (4.7-6.1); RED CELL DISTRIBUTION WIDTH 16.4 % (11.6-14.6)
[2020-07-20 17:46] LABS: INR 1.2; PROTHROMBIN TIME 12.1 sec (9.6-11.0)
[2020-07-20 17:51] LABS: FOLIC ACID (FOLATE) SERUM 5.2 ng/mL (>5.38)
[2020-07-20 20:00] VITALS: BP 103/68
[2020-07-20 22:55] LABS: PLATELET ESTIMATE DECREASED
[2020-07-21] VITALS: BP 110/68
[2020-07-21 04:00] VITALS: BP 118/77
[2020-07-21 06:58] LABS: BASOPHILS % 0.4 % (0.0-2.0); EOSINOPHILS % 1.3 % (0.0-5.0); HEMATOCRIT. 23.5 % (42.0-52.0); HEMOGLOBIN. 7.7 g/dL (14.0-18.0); LYMPHOCYTES % 10.1 % (20.0-50.0); MEAN CORPUSCULAR VOLUME 91.1 fL (80.0-94.0); MEAN PLATELET VOLUME 8.3 fl (7.4-10.4); MONOCYTES % 6.6 % (2.0-8.0); NEUTROPHILS % 81.6 % (40.0-76.0); PLATELET 70 x1000/uL (130-400); RED BLOOD CELL COUNT 2.58 mill/uL (4.7-6.1); RED CELL DISTRIBUTION WIDTH 16.2 % (11.6-14.6)
[2020-07-21] MEDS: SUCRALFATE 1G TABLET PO SCH ×2 (07:12→12:36)
[2020-07-21] MEDS: BLOOD SUGAR DIAGNOSTIC STRIP TEST SCH ×2 (07:16→12:26)
[2020-07-21] MEDS: CALCIUM ACETATE 667MG CAPSULE PO SCH ×2 (07:17→12:37)
[2020-07-21] MEDS: INSULIN LISPRO 100 UNITS/ML SUBCUT SCH ×2 (07:40→12:29)
[2020-07-21 08:00] VITALS: BP 125/79
[2020-07-21] MEDS: ASPIRIN 81MG TABLET PO SCH (09:26)
[2020-07-21] MEDS: PANTOPRAZOLE SODIUM 40 MG/VIAL IV SCH (09:26)
[2020-07-21] MEDS: CLOPIDOGREL 75MG TABLET PO SCH (09:26)
[2020-07-21] MEDS ORDERED: HEPARIN SODIUM 1,000 UNIT/1ML VIAL IV SCH (11:30)
[2020-07-21] MEDS: INSULIN GLARGINE UD 100 UNITS/ML SYR SUBCUT SCH (11:51)
[2020-07-21 13:16] LABS: HEMATOCRIT 23.2 % (42.0-52.0); HEMOGLOBIN 7.7 g/dL (14.0-18.0); MEAN CORPUSCULAR HEMOGLOBIN 29.8 pg (28.0-32.0); MEAN CORPUSCULAR VOLUME 90.1 fL (80.0-94.0); PLATELET 99 x1000/uL (130-400); RED BLOOD CELL COUNT 2.57 mill/uL (4.7-6.1); RED CELL DISTRIBUTION WIDTH 16.1 % (11.6-14.6)
[2020-07-21] MEDS: SODIUM CHLORIDE 0.9% INJ 3ML FLUSH IVF SCH (14:00)
[2020-07-22] MEDS ORDERED: FOLIC ACID 1MG TABLET PO SCH (09:00)
== END 2020-07-21 16:10 | DRG 853 ==
LOC: ER 14:49 → MICUSO 16:27 → EDBEDREQSVC 07-04 08:34 → 3WST 07-04 12:43 → MICUSO 07-04 13:41 → 7WST 07-06 07:28 → 6EST 07-12 23:30 → 8WST 07-20 01:15
PROVIDERS: ADMIT Internal Medicine; ATTEND Internal Medicine
PROC: 4A023N7 Measurement of Cardiac Sampling and Pressure, Left Heart, Percutaneous Approach (ICD-10-PCS; principal; 2020-07-04)
PROC: 027035Z Dilation of Coronary Artery, One Artery with Two Drug-eluting Intraluminal Devices, Percutaneous Approach (ICD-10-PCS; 2020-07-04)
PROC: B2111ZZ Fluoroscopy of Multiple Coronary Arteries using Low Osmolar Contrast (ICD-10-PCS; 2020-07-04)
PROC: 30233N1 Transfusion of Nonautologous Red Blood Cells into Peripheral Vein, Percutaneous Approach (ICD-10-PCS; 2020-07-04)
PROC: 5A1D70Z Performance of Urinary Filtration, Intermittent, Less than 6 Hours Per Day (ICD-10-PCS; 2020-07-04)
PROC: 5A1D70Z Performance of Urinary Filtration, Intermittent, Less than 6 Hours Per Day (ICD-10-PCS; 2020-07-05)
PROC: 5A1D70Z Performance of Urinary Filtration, Intermittent, Less than 6 Hours Per Day (ICD-10-PCS; 2020-07-07)
PROC: 5A1D70Z Performance of Urinary Filtration, Intermittent, Less than 6 Hours Per Day (ICD-10-PCS; 2020-07-10)
PROC: 5A1D70Z Performance of Urinary Filtration, Intermittent, Less than 6 Hours Per Day (ICD-10-PCS; 2020-07-12)
PROC: 5A1D70Z Performance of Urinary Filtration, Intermittent, Less than 6 Hours Per Day (ICD-10-PCS; 2020-07-14)
PROC: 5A1D70Z Performance of Urinary Filtration, Intermittent, Less than 6 Hours Per Day (ICD-10-PCS; 2020-07-17)
PROC: 5A1D70Z Performance of Urinary Filtration, Intermittent, Less than 6 Hours Per Day (ICD-10-PCS; 2020-07-19)
PROC: 5A1D70Z Performance of Urinary Filtration, Intermittent, Less than 6 Hours Per Day (ICD-10-PCS; 2020-07-21)
DX: A41.89 Other specified sepsis (principal); U07.1 COVID-19; E11.10 Type 2 diabetes mellitus with ketoacidosis without coma; E43 Unspecified severe protein-calorie malnutrition; N18.6 End stage renal disease; G92 Toxic encephalopathy; R65.21 Severe sepsis with septic shock; R57.0 Cardiogenic shock; J12.82 Pneumonia due to coronavirus disease 2019; I50.43 Acute on chronic combined systolic (congestive) and diastolic (congestive) heart failure; J96.01 Acute respiratory failure with hypoxia; I21.09 ST elevation (STEMI) myocardial infarction involving other coronary artery of anterior wall; I13.2 Hypertensive heart and chronic kidney disease with heart failure and with stage 5 chronic kidney disease, or end stage renal disease; J91.8 Pleural effusion in other conditions classified elsewhere; D64.9 Anemia, unspecified; E83.51 Hypocalcemia; E87.5 Hyperkalemia; E11.22 Type 2 diabetes mellitus with diabetic chronic kidney disease; I25.10 Atherosclerotic heart disease of native coronary artery without angina pectoris; B97.89 Other viral agents as the cause of diseases classified elsewhere; D63.8 Anemia in other chronic diseases classified elsewhere; D69.6 Thrombocytopenia, unspecified; E78.5 Hyperlipidemia, unspecified; I07.1 Rheumatic tricuspid insufficiency; I45.10 Unspecified right bundle-branch block; R74.01 Elevation of levels of liver transaminase levels; I95.9 Hypotension, unspecified; T38.0X5A Adverse effect of glucocorticoids and synthetic analogues, initial encounter; I25.2 Old myocardial infarction; Z68.29 Body mass index [BMI] 29.0-29.9, adult; Z79.4 Long term (current) use of insulin; Z91.15 Patient's noncompliance with renal dialysis; Z99.2 Dependence on renal dialysis; Z93.3 Colostomy status; Y92.89 Other specified places as the place of occurrence of the external cause; Z79.899 Other long term (current) drug therapy; Z95.5 Presence of coronary angioplasty implant and graft
CPT/HCPCS: 36415; 71045; 80048; 80053; 80076; 80320; 82010; 82270; 82550; 82553; 82607; 82728; 82746; 82962; 83036; 83540; 83550; 83605; 83735; 83880; 83930; 84100; 84484; 85025; 85027; 85044; 85347; 86850; 86900; 86920; 87426; 87635; 92928; 93005; 93306; 93458; 93970; 97116; 97163; 99291; C1725; C1769; C1874; C1887; C9113; J0456; J0696; J0885; J1100; J1200; J1265; J1644; J1720; J1815; J2250; J2270; J2405; J3010; J3490; J7030; J7040; J7050; J7060; P9016; Q9967; U0003; G0480